=== PATIENT | male | born 1950 ===

== ENCOUNTER 2022-12-18 20:04 | Emergency (ER) | payer MEDICARE ==
[2022-12-18] MEDS ORDERED: Lidocaine 1% PF 5 ML VIAL ONE (20:29)
[2022-12-18] MEDS ORDERED: Bacitracin 1 PK ONE (20:29)
[2022-12-18] MEDS ORDERED: LevoFLOXacin 500 MG TAB ONE (20:57)
[2022-12-18] MEDS ORDERED: metroNIDAZOLE 250 MG TAB ONE (20:57)
[2022-12-18] MEDS ORDERED: Cephalexin 500 MG CAP ONE (20:57)
== END 2022-12-18 21:03 | disposition home or self-care (01) ==
LOC: MADERS 20:04
DX: S60.352A Superficial foreign body of left thumb, initial encounter (principal); I25.10 Atherosclerotic heart disease of native coronary artery without angina pectoris; E78.5 Hyperlipidemia, unspecified; I10 Essential (primary) hypertension; Z79.899 Other long term (current) drug therapy; Z79.82 Long term (current) use of aspirin; W45.8XXA Other foreign body or object entering through skin, initial encounter